=== PATIENT | female | born 1985 | race Asian ===

== ENCOUNTER 2017-11-05 00:05 | Inpatient (IN) | payer SELFPAY ==
[~2017-11-05] VITALS: Ht 167.6 cm; Wt 70.1 kg
[2017-11-05 00:23] VITALS: BP 111/62
[2017-11-05] MEDS ORDERED: LACTATED RINGERS 1,000 ML IV SCH (00:32)
[2017-11-05 00:57] LABS: BASOPHILS % (AUTO) 0.2 % (0.0-2.0); EOSINOPHILS # (AUTO) 0.1 K/uL (0-0.4); EOSINOPHILS % (AUTO) 1.1 % (0.0-4.0); HEMATOCRIT 30.6 % (36-48); HEMOGLOBIN 10.5 g/dL (12.0-16.0); LYMPHOCYTES # (AUTO) 1.7 K/uL (2.5-16.5); LYMPHOCYTES % (AUTO) 24.1 % (20.5-51.1); MEAN CORPUSCULAR HEMOGLOBIN 29 pg (27-31); MEAN CORPUSCULAR HGB CONC 34 g/dL (33-37); MEAN CORPUSCULAR VOLUME 84.4 fL (80-94); MONOCYTES # (AUTO) 0.4 K/uL (0.8-1.0); MONOCYTES % (AUTO) 5.1 % (1.7-9.3); NEUTROPHILS # (AUTO) 4.8 K/uL (1.8-7.7); NEUTROPHILS % (AUTO) 69.5 % (42.2-75.2); PLATELET COUNT (AUTO) 259 K/uL (140-450); RED BLOOD CELL COUNT(AUTO) 3.62 MIL/uL (4.20-5.40); RED CELL DISTRIBUTION WIDTH 16.9 % (11.6-13.7)
[2017-11-05 01:19] LABS: APPEARANCE,URINE CLOUDY (CLEAR); BILIRUBIN,URINE NEGATIVE (NEGATIVE); BLOOD, URINE NEGATIVE (NEGATIVE); COLOR,URINE YELLOW (YELLOW); LEUKOCYTE ESTERASE ,URINE NEGATIVE (NEGATIVE); NITRITE, URINE POSITIVE (NEGATIVE); PH,URINE 6.5 (5.0-9.0); UGLUCOSE NEGATIVE (NEGATIVE)
[2017-11-05 01:39] LABS: RBC,URINE 0-5 (RARE) /HPF (0-5); WBC,URINE 0-5 (RARE) /HPF (0-5)
[2017-11-05] MEDS ORDERED: FERR-252 PO (01:48)
[2017-11-05] MEDS ORDERED: MEASLES, MUMPS, AND RUBELLA 1 VIAL SQVAC PRN (06:40)
[2017-11-05] MEDS ORDERED: oxyCODONE/APAP 5/325 MG 1 TAB TAB PO PRN (06:40)
[2017-11-05] MEDS ORDERED: IBUPROFEN 800 MG TAB PO PRN (06:40)
[2017-11-05] MEDS ORDERED: HYDROcodone/APAP 5/325 MG 1 TAB TAB PO PRN (06:40)
[2017-11-05] MEDS ORDERED: SIMETHICONE 80 MG TAB.CHEW PO PRN (06:40)
[2017-11-05] MEDS ORDERED: METHYLERGONOVINE 0.2 MG/ML AMP IM PRN (06:40)
[2017-11-05] MEDS ORDERED: TRIMETHOBENZAMIDE 200 MG/2 ML SYR IM PRN (06:40)
[2017-11-05] MEDS ORDERED: TRIAMCINOLONE 40 MG/ML 5ML VIAL ONE (08:40)
[2017-11-05] MEDS ORDERED: OXYTOCIN 10 UNITS/ML VIAL ONE (08:40)
[2017-11-05] MEDS ORDERED: ePHEDrine 50 MG/ML VIAL ONE (08:41)
[2017-11-05] MEDS ORDERED: diphenhydrAMINE 50 MG/ML VIAL ONE (08:45)
[2017-11-05] MEDS ORDERED: OXYTOCIN 20 UNITS/LR PREMIX 1,000 ML IV ONE (08:45)
[2017-11-05] MEDS ORDERED: ONDANSETRON 4 MG/2 ML VIAL ONE (08:45)
[2017-11-05] MEDS ORDERED: fentaNYL 0.05 MG/ML VIAL ONE (08:48)
[2017-11-05] MEDS ORDERED: BUPIVACAINE-MPF 0.5% 10 ML VIAL INJ ONE (08:48)
[2017-11-05] MEDS ORDERED: MORPHINE PRES FREE 10 MG/10 ML AMP IV ONE (08:48)
[2017-11-05] MEDS ORDERED: CITRIC ACID/SODIUM CITRATE 30 ML UDC PO ONE (09:00)
[2017-11-05] MEDS ORDERED: ONDANSETRON 4 MG/2 ML VIAL IVP PRN ×2 (09:05)
[2017-11-05] MEDS ORDERED: NALOXONE 0.4 MG/ML VIAL IVP PRN ×3 (09:05)
[2017-11-05] MEDS ORDERED: NALBUPHINE 10 MG/ML AMP IVP PRN (09:05)
[2017-11-05] MEDS ORDERED: diphenhydrAMINE 50 MG/ML VIAL IVP PRN (09:05)
[2017-11-05] MEDS ORDERED: KETOROLAC 60 MG/2 ML VIAL IM PRN (09:05)
[2017-11-05 16:18] LABS: RAPID PLASMA REAGIN NON-REACTIVE (Non Reactiv)
[2017-11-05] MEDS: OXYTOCIN 20 UNITS in LACTATED RINGERS 1,000 ML IV SCH (17:11)
[2017-11-05] MEDS: DOCUSATE SOD/SENNA 50/8.6 MG 1 TAB PO SCH (21:00)
[2017-11-05] MEDS ORDERED: TEMAZEPAM 15 MG CAP PO PRN (22:00)
[2017-11-06] MEDS ORDERED: OXYTOCIN 20 UNITS/LR PREMIX 1,000 ML IV ONE (00:45)
[2017-11-06] MEDS: OXYTOCIN 20 UNITS in LACTATED RINGERS 1,000 ML IV SCH (00:50)
[2017-11-06 07:19] LABS: BASOPHILS % (AUTO) 0.3 % (0.0-2.0); EOSINOPHILS % (AUTO) 0.3 % (0.0-4.0); HEMATOCRIT 30.6 % (36-48); HEMOGLOBIN 10.1 g/dL (12.0-16.0); LYMPHOCYTES # (AUTO) 1.3 K/uL (2.5-16.5); LYMPHOCYTES % (AUTO) 9.9 % (20.5-51.1); MEAN CORPUSCULAR HEMOGLOBIN 28 pg (27-31); MEAN CORPUSCULAR HGB CONC 33 g/dL (33-37); MEAN CORPUSCULAR VOLUME 86.3 fL (80-94); MONOCYTES # (AUTO) 0.8 K/uL (0.8-1.0); MONOCYTES % (AUTO) 5.8 % (1.7-9.3); NEUTROPHILS # (AUTO) 11.1 K/uL (1.8-7.7); NEUTROPHILS % (AUTO) 83.7 % (42.2-75.2); PLATELET COUNT (AUTO) 253 K/uL (140-450); RED BLOOD CELL COUNT(AUTO) 3.55 MIL/uL (4.20-5.40); RED CELL DISTRIBUTION WIDTH 15.7 % (11.6-13.7); WHITE BLOOD COUNT (AUTO) 13.2 K/uL (4.8-10.8)
[2017-11-06] MEDS: DOCUSATE SOD/SENNA 50/8.6 MG 1 TAB PO SCH (21:56)
== END 2017-11-07 13:30 | disposition home or self-care (01) | DRG 766 ==
LOC: MLD 00:05 → MFCC 09:08
PROVIDERS: ADMIT Obstetrics & Gynecology; ATTEND Obstetrics & Gynecology
PROC: 10D00Z1 Extraction of Products of Conception, Low, Open Approach (ICD-10-PCS; principal; 2017-11-06)
PROC: 3E0234Z Introduction of Serum, Toxoid and Vaccine into Muscle, Percutaneous Approach (ICD-10-PCS; 2017-11-06)
DX: O34.219 Maternal care for unspecified type scar from previous cesarean delivery (principal); D64.9 Anemia, unspecified; Z37.0 Single live birth; O99.02 Anemia complicating childbirth; Z23 Encounter for immunization; Z3A.39 39 weeks gestation of pregnancy
CPT/HCPCS: 36415; 81001; 85025; 86592; 86886; 86900; 86901; 87081; 87086; 90707; J0690; J1200; J2270; J2405; J2590; J3010; J3301; J3490; J7060; J7120